=== PATIENT | female | born 1980 | race Caucasian/White ===

== ENCOUNTER 2017-05-29 23:25 | Emergency (ER) | payer OTHER ==
[~2017-05-29] VITALS: Ht 170.2 cm; Wt 60.0 kg
[2017-05-29 23:26] VITALS: BP 138/84; PULSE 114; RESP 16; TEMP 97.8; O2SAT 98
[2017-05-29] MEDS ORDERED: ADDE10XR PO (23:36)
[2017-05-29] MEDS ORDERED: METH40TA PO (23:36)
[2017-05-29] MEDS ORDERED: LORA-392 PO (23:36)
[2017-05-30] MEDS ORDERED: SODIUM CHLOR 0.9% 1000 ML INJ 1,000 ML IV ONE (00:16)
[2017-05-30 00:20] VITALS: O2SAT 100
--- NOTE | 2017-05-30 00:21 | PD ---
HPI Chief Complaint: OD/ Ingestion Time Seen by Provider: 00:16 Travel History International Travel<30 days: No Contact w/Intl Traveler<30days: No Traveled to known affect area: No History of Present Illness HPI 37-year-old female presents to the emergency department by EMS transport for evaluation of syncope. Patient reportedly was sitting with a group of friends at a function/green party just prior to arrival to the emergency department. The group of friends are here at the bedside and they report that they had consumed alcoholic beverages patient reports drinking 2 drinks. According to the bystanders they thought that the patient had decided to rest and close her eyes and after about 5-7 minutes to group decided to get up only really noticed that she did not get up so they tried to awaken her and she was found to be unresponsive. Patient was not drooling there was no seizure activity there was no vomiting and EMS was called. Upon EMS arrival patient was unresponsive so she received Narcan 0.8 mg and had immediate response with a GCS of 15. Patient states she recalls drinking 2 alcoholic beverages does not recall much after this. There is no tongue trauma no incontinence. Patient states this is never happened before. Patient does take methadone and Ativan and Adderall daily as her prescription medications. Patient denies other ingestants or substance use. Patient's had no recent febrile illness in the last 24-40 hours but one week ago was on amoxicillin for a throat infection and completed the entire course of antibiotic and has had no recurrent symptoms. Patient denies headache visual disturbance change in speech confusion neck pain chest pain shortness of breath nausea vomiting abdominal pain diarrheal illness or urinary symptoms flank pain joint pain swelling or skin rash. PFSH Past Medical History Narrative Medical Anxiety depression oophorectomy tobacco use alcohol use methadone prescription; nursing notes reviewed Anxiety: Yes Depression: Yes ?: Unknown LMP: 07/22/16 Past Surgical History Section: Yes Other Surgery: Yes (R. OVARY REMOVED ) Social History Alcohol Use: Yes Tobacco Use: Yes Substance Use: Yes (METHADONE) Allergies-Medications (Allergen,Severity, Reaction): Coded Allergies: No Known Allergies (Unverified , 05/29/17) Reported Meds & Prescriptions Reported Meds & Active Scripts Active Reported Adderall Xr 24 HR (Amphetamine/Dextroamphetamine) 10 Mg Cap 10 Mg PO DAILY Once daily in the morning. Methadone (Methadone HCl) 40 Mg Tab 45 Mg PO DAILY Ativan (Lorazepam) 0.5 Mg Tab 0.5 Mg PO BID Review of Systems Except as stated in HPI: all other systems reviewed are Neg Physical Exam Narrative GENERAL: Well-developed well-nourished female in no acute distress no respiratory distress; GCS 15 SKIN: Warm and dry. HEAD: Atraumatic. Normocephalic. EYES: Pupils equal and round. No scleral icterus. No injection or drainage. ENT: No nasal bleeding or discharge. Mucous membranes pink and moist. NECK: Trachea midline. No JVD. CARDIOVASCULAR: Increased Regular rate and rhythm. RESPIRATORY: No accessory muscle use. Clear to auscultation. Breath sounds equal bilaterally. GASTROINTESTINAL: Abdomen soft, non-tender, nondistended. Hepatic and splenic margins not palpable. MUSCULOSKELETAL: Extremities without clubbing, cyanosis, or edema. No obvious deformities. NEUROLOGICAL: Awake and alert. No obvious cranial nerve deficits. Motor grossly within normal limits. Five out of 5 muscle strength in the arms and legs. Normal speech. PSYCHIATRIC: Appropriate mood and affect; insight and judgment normal. Data Data Last Documented VS Vital Signs Date Time Temp Pulse Resp B/P (MAP) Pulse Ox O2 Delivery O2 Flow Rate FiO2 05/30/17 00:20 100 Room Air 05/29/17 23:26 97.8 114 16 138/84 (102) Orders Orders Electrocardiogram (05/30/17 00:16) Complete Blood Count With Diff (05/30/17 00:16) Comprehensive Metabolic Panel (05/30/17 00:16) Prothrombin Time / Inr (Pt) (05/30/17:16) Act Partial Throm Time (Ptt) (05/30/17 00:16) Urinalysis - C+S If Indicated (05/30/17 00:16) Chest, Single Ap (05/30/17 00:16) Ct Brain W/O Iv Contrast(Rout) (05/30/17 00:16) Blood Glucose (05/30/17:16) Iv Access Insert/Monitor (05/30/17 00:16) Ecg Monitoring (05/30/17 00:16) Oximetry (05/30/17 00:16) Sodium Chloride 0.9% Flush (Ns Flush) (05/30/17 00:30) Sodium Chlor 0.9% 1000 Ml Inj (Ns 1000 M (05/30/17 00:16) Drug Screen, Random Urine (05/30/17 00:16) Alcohol (Ethanol) (05/30/17 00:16) Salicylates (Aspirin) (05/30/17 00:16) Tylenol (Acetaminophen) (05/30/17 00:16) Labs Laboratory Tests Test 05/30/17 00:23 05/30/17 00:44 05/30/17 01:15 White Blood Count 10.2 TH/MM3 Red Blood Count 4.98 MIL/MM3 Hemoglobin 15.9 GM/DL Hematocrit 46.5 % Mean Corpuscular Volume 93.4 FL Mean Corpuscular Hemoglobin 32.0 PG Mean Corpuscular Hemoglobin Concent 34.3 % Red Cell Distribution Width 13.1 % Platelet Count 231 TH/MM3 Mean Platelet Volume 9.2 FL Neutrophils (%) (Auto) 49.8 % Lymphocytes (%) (Auto) 44.2 % Monocytes (%) (Auto) 5.3 % Eosinophils (%) (Auto) 0.2 % Basophils (%) (Auto) 0.5 % Neutrophils # (Auto) 5.1 TH/MM3 Lymphocytes # (Auto) 4.5 TH/MM3 Monocytes # (Auto) 0.5 TH/MM3 Eosinophils # (Auto) 0.0 TH/MM3 Basophils # (Auto) 0.1 TH/MM3 CBC Comment DIFF FINAL Differential Comment Prothrombin Time 9.9 SEC Prothromb Time International Ratio 1.0 RATIO Activated Partial Thromboplast Time 25.0 SEC Urine Color LIGHT-YELLOW Urine Turbidity CLEAR Urine pH 5.5 Urine Specific [place] 1.006 Urine Protein NEG mg/dL Urine Glucose (UA) NEG mg/dL Urine Ketones NEG mg/dL Urine Occult Blood NEG Urine Nitrite NEG Urine Bilirubin NEG Urine Urobilinogen LESS THAN 2.0 MG/DL Urine Leukocyte Esterase NEG Urine RBC LESS THAN 1 /hpf Urine WBC LESS THAN 1 /hpf Urine Bacteria RARE /hpf Urine Hyaline Casts 1 /lpf Urine Mucus FEW /lpf Microscopic Urinalysis Comment CULT NOT INDICATED Urine Opiates Screen NEG Urine Barbiturates Screen NEG Urine Amphetamines Screen POS Urine Benzodiazepines Screen NEG Urine Cocaine Screen NEG Urine Cannabinoids Screen NEG Blood Urea Nitrogen 15 MG/DL Creatinine 0.60 MG/DL Random Glucose 101 MG/DL Total Protein 6.3 GM/DL Albumin 3.4 GM/DL Calcium Level 7.6 MG/DL Alkaline Phosphatase 82 U/L Aspartate Amino Transf (AST/SGOT) 33 U/L Alanine Aminotransferase (ALT/SGPT) 30 U/L Total Bilirubin 0.2 MG/DL Sodium Level 145 MEQ/L Potassium Level 4.0 MEQ/L Chloride Level 111 MEQ/L Carbon Dioxide Level 28.0 MEQ/L Anion Gap 6 MEQ/L Estimat Glomerular Filtration Rate 113 ML/MIN Salicylates Level 3.8 MG/DL Acetaminophen Level LESS THAN 2.0 MCG/ML Ethyl Alcohol Level 165 MG/DL MDM Medical Decision Making Medical Screen Exam Complete: Yes Emergency Medical Condition: Yes Medical Record Reviewed: Yes Interpretation(s) EKG: Sinus tachycardia rate [address] elevation or injury pattern or ectopy noted CBC & BMP Diagram 05/30/17 00:23 05/30/17 01:15 Total Protein 6.3 L, Albumin 3.4, Calcium Level 7.6 L, Alkaline Phosphatase 82, Aspartate Amino Transf (AST/SGOT) 33, Alanine Aminotransferase (ALT/SGPT) 30, Total Bilirubin 0.2 Vital Signs Date Time Temp Pulse Resp B/P (MAP) Pulse Ox O2 Delivery O2 Flow Rate FiO2 05/30/17 00:20 100 Room Air 05/29/17 23:26 97.8 114 16 138/84 (102) 98 uds: Amphetamine Serum alcohol: 165 Urinalysis within normal limits [id number] hCG negative CXR: nad ct brain w/o nad Differential Diagnosis Syncope, overdose, seizure, arrhythmia, electrolyte disturbance, TIA, CVA Narrative Course Patient placed on genetic coordinator with continuous pulse oximetry normal saline 1 L administered specimens collected and sent for resulting EKG ordered imaging studies ordered It is now 2:15 AM labs resulted and imaging studies revealed no acute abnormality; patient's GCS remains 15; patient stable for outpatient management and close follow-up with her primary care managing provider: Patient return to emergency for free concerns or change in condition; patient is encouraged not to drink alcohol beverages as they may similarly adversely interact with her chronic prescription medications in the future. Patient given normal saline bolus monitored for approximately 3 hours without altered mentation and stable for outpatient management; GCS 15. Diagnosis Primary Impression: Alcohol ingestion Additional Impression: Adverse drug interaction Referrals: Primary Care Physician call for appointment Patient Instructions: General Instructions Additional Instructions: No alcohol use Increase fluid hydration Follow up with your primary care provider Return to emergency department for any concerns or change in condition Med/Other Pt SpecificInfo: No Change to Meds Disposition: 01 DISCHARGE HOME Condition: Stable Matilda Tim MD May 30, 2017 00:21
[2017-05-30] MEDS ORDERED: SODIUM CHLORIDE 0.9% FLUSH 10 ML FLUSH IVF PRN (00:30)
--- NOTE | 2017-05-30 00:47 | RADRPT ---
EXAM DATE/TIME: 05/30/2017 00:27 [facility] COMPARISON: No previous studies available for comparison. INDICATIONS : Syncope. MEDICAL HISTORY : None. SURGICAL HISTORY : None. ENCOUNTER: Initial ACUITY: 1 day PAIN SCORE: 0/10 LOCATION: Bilateral chest FINDINGS: A single view of the chest demonstrates the lungs to be symmetrically aerated without evidence of mas s, infiltrate or effusion. The cardiomediastinal contours are unremarkable. Osseous structures are intact. CONCLUSION: No acute disease. Drew St MD on May 30, 2017 at 0:46 Board Certified Radiologist. This report was verified electronically.
[2017-05-30 00:48] LABS: AUTOMATED NEUTROPHIL # 5.1 TH/MM3 (1.8-7.7); BASOPHIL # 0.1 TH/MM3 (0-0.2); BASOPHIL % 0.5 % (0.0-2.0); EOSINOPHIL % 0.2 % (0.0-4.0); HEMATOCRIT 46.5 % (35.0-46.0); HEMO FLAGS DIFF FINAL; LYMPH % 44.2 % (9.0-44.0); LYMPHOCYTE # 4.5 TH/MM3 (1.0-4.8); MEAN CELL VOLUME 93.4 FL (80.0-100.0); MEAN CORPUSCULAR HGB CONC 34.3 % (32.0-36.0); MONO % 5.3 % (0.0-8.0); NEUT % 49.8 % (16.0-70.0); PLATELET COUNT 231 TH/MM3 (150-450); RED BLOOD COUNT 4.98 MIL/MM3 (4.00-5.30); RED CELL DISTRIBUTION WIDTH 13.1 % (11.6-17.2); WHITE BLOOD COUNT 10.2 TH/MM3 (4.0-11.0)
[2017-05-30 01:03] LABS: BACTERIA, URINE RARE /hpf; BLOOD, URINE NEG (NEG); COMMENT (UR) CULT NOT INDICATED; CULTURE IF INDICATED CULT NOT INDICATED; GLUCOSE,URINE NEG (NEG); HYALINE CAST, URINE 1 /lpf (RARE); KETONE, URINE NEG (NEG); MUCUS URINE FEW /lpf (OCC); NITRITE,URINE NEG (NEG); PH, URINE 5.5 (5.0-8.5); URINE COLOR LIGHT-YELLOW (YELLW/STRAW)
[2017-05-30 01:04] LABS: PROTHROMBIN TIME - PATIENT 9.9 SEC (9.8-11.6)
[2017-05-30 01:54] LABS: ACETAMINOPHEN LESS THAN 2.0 MCG/ML (10.0-30.0); ALKALINE PHOSPHATASE 82 U/L (45-117); ALT (GPT) 30 U/L (10-53); ANION GAP 6 MEQ/L (5-15); AST (GOT) 33 U/L (15-37); BLOOD UREA NITROGEN 15 MG/DL (7-18); CHLORIDE 111 MEQ/L (98-107); GLOMERULAR FILTRATION RATE 113 ML/MIN (>89); SODIUM (NA) 145 MEQ/L (136-145); TOTAL BILIRUBIN ADULT 0.2 MG/DL (0.2-1.0)
[2017-05-30 01:59] LABS: ALCOHOL 165 MG/DL (0-5)
--- NOTE | 2017-05-30 02:10 | RADRPT ---
EXAM DATE/TIME: 05/30/2017 01:26 [facility] COMPARISON: No previous studies available for comparison. INDICATIONS : Altered mental status. RADIATION DOSE: 31.99 CTDIvol (mGy) MEDICAL HISTORY : None SURGICAL HISTORY : section. ENCOUNTER: Initial ACUITY: 1 day PAIN SCALE: 0/10 LOCATION: cranial TECHNIQUE: Multiple contiguous axial images were obtained of the head. Using automated exposure control and adj ustment of the mA and/or kV according to patient size, radiation dose was kept as low as reasonably a chievable to obtain optimal diagnostic quality images. DICOM format image data is available electro nically for review and comparison. FINDINGS: CEREBRUM: The ventricles are normal for age. No evidence of midline shift, mass lesion, hemorrhage or acute in farction. No extra-axial fluid collections are seen. POSTERIOR FOSSA: The cerebellum and brainstem are intact. The 4th ventricle is midline. The cerebellopontine angle i s unremarkable. EXTRACRANIAL: The visualized portion of the orbits is intact. SKULL: The calvaria is intact. No evidence of skull fracture. CONCLUSION: Normal examination. Drew St MD on May 30, 2017 at 2:08 Board Certified Radiologist. This report was verified electronically.
--- NOTE | 2017-05-30 12:21 | EKG ---
Date Performed: 05/30/2017 Time Performed: 00:48:27 PTAGE: 37 years EKG: SINUS TACHYCARDIA ABNORMAL RHYTHM ECG WARNING: DATA QUALITY MAY AFFECT INTERPRETATION NO PREVIOUS TRACING DOCTOR: Olman Edwards Interpretating Date/Time 05/30/2017 12:20:36
== END 2017-05-30 03:00 | disposition home or self-care (01) ==
LOC: NEPC 23:25
DX: F10.929 Alcohol use, unspecified with intoxication, unspecified (principal); Y90.6 Blood alcohol level of 120-199 mg/100 ml; Z72.0 Tobacco use; Z79.899 Other long term (current) drug therapy
CPT/HCPCS: 70450; 71010; 80053; 80307; 81001; 85025; 85610; 85730; 93005; 96360; 99285; J7030